=== PATIENT | female | born 1950 | race Caucasian/White ===

== ENCOUNTER → 2023-04-19 18:40 | Outpatient (REF) | payer MEDICARE, SELFPAY ==
[2023-04-19 19:32] LABS: Urine Albumin Negative (Neg - Trace); Urine Bilirubin Negative (Negative); Urine Character Clear (Clear); Urine Color Yellow; Urine Glucose Negative (Negative); Urine Ketone Negative (Negative); Urine Leukocyte Trace (Negative); Urine Nitrite Negative (Negative); Urine Occult Blood Negative (Negative); Urine Specific Gravity 1.015 (<1.030); Urine Urobilinogen Negative (Neg - 1+)
[2023-04-19 19:44] LABS: Urine Red Blood Cell None Seen /HPF (0-2); Urine White Cell 0-2 /HPF (0-5)
== END ==
LOC: CLAB 18:40
PROVIDERS: ATTENDING PHYSICIAN Obstetrics & Gynecology
DX: N39.0 Urinary tract infection, site not specified (principal)
CPT/HCPCS: 81003; 81015; 87086

== ENCOUNTER → 2023-06-29 06:30 | Day surgery (SDC) | payer MEDICARE, SELFPAY | LOC: GI 06:30 | PROVIDERS: ATTENDING PHYSICIAN Internal Medicine | DX: Z12.11 Encounter for screening for malignant neoplasm of colon (principal); D12.2 Benign neoplasm of ascending colon; K57.30 Diverticulosis of large intestine without perforation or abscess without bleeding; K64.9 Unspecified hemorrhoids; Z86.010 Personal history of colon polyps; Z80.0 Family history of malignant neoplasm of digestive organs | CPT/HCPCS: 45385; 45380; 88305 ==

== ENCOUNTER 2023-08-27 07:41 | Outpatient (RCR) | payer MEDICARE, SELFPAY | END 2023-08-27 23:59 | disposition home or self-care (01) | LOC: RPT 07:41 | PROVIDERS: ATTENDING PHYSICIAN Obstetrics & Gynecology; FAMILY PHYSICIAN Family Medicine | DX: N39.8 Other specified disorders of urinary system (principal); Z73.6 Limitation of activities due to disability | CPT/HCPCS: 97161; 97530 ==

== ENCOUNTER → 2023-09-06 07:02 | Outpatient (REF) | payer MEDICARE, SELFPAY | LOC: PAVMRI 07:02 | PROVIDERS: ATTENDING PHYSICIAN Family Medicine | DX: M25.561 Pain in right knee (principal) | CPT/HCPCS: 73721 ==

== ENCOUNTER 2023-09-28 14:08 | Outpatient (RCR) | payer MEDICARE, SELFPAY | END 2023-09-28 23:59 | disposition home or self-care (01) | LOC: RPT 14:08 | PROVIDERS: ATTENDING PHYSICIAN Obstetrics & Gynecology; FAMILY PHYSICIAN Family Medicine | DX: N39.8 Other specified disorders of urinary system (principal); Z73.6 Limitation of activities due to disability | CPT/HCPCS: 97110; 97112; 97140 ==

== ENCOUNTER → 2023-10-07 14:24 | Outpatient (REF) | payer MEDICARE, SELFPAY ==
[2023-10-07 16:12] LABS: Urine Albumin Negative (Neg - Trace); Urine Bilirubin Negative (Negative); Urine Color Yellow; Urine Glucose Negative (Negative); Urine Ketone Negative (Negative); Urine Leukocyte Trace (Negative); Urine Nitrite Negative (Negative); Urine Occult Blood Negative (Negative); Urine Urobilinogen Negative (Neg - 1+)
[2023-10-07 16:13] LABS: Urine Character Clear (Clear)
[2023-10-07 16:23] LABS: Urine Bacteria Few (Negative); Urine Squamous Cell >30 /LPF (Few)
[2023-10-07 16:25] LABS: % Basophils 0.2 % (0-2); % Immature Granulocytes 0.2 % (0-0.5); % Lymphocytes 27.5 % (20.5-51.1); % Monocytes 9.2 % (1.7-9.3); % Neutrophils 56.9 % (42.2-75.2); Absolute Eosinophils 0.3 10^3/uL (0-0.7); Absolute Lymphocytes 1.2 10^3/uL (1.2-3.4); Absolute Monocytes 0.4 10^3/uL (0.1-0.6); Absolute Neutrophils 2.5 10^3/uL (1.4-6.5); Hematocrit 39.6 % (37.0-47.0); Hemoglobin 13.2 g/dL (12.0-16.0); Mean Corp Hgb Conc. 33.3 g/dL (33.0-37.0); Mean Corpuscular Hgb 30.2 pg (27.0-31.0); Mean Corpuscular Volume 90.6 fL (81.0-99.0); Mean Platelet Volume 11.1 fL (7.4-10.4); Nucleated Red Blood Cells % 0 %; Platelet Count 238 10^3/uL (130-400); Red Blood Cell Count 4.37 10^6/uL (4.20-5.40); Red Cell Dist. Width 13.3 % (11.5-14.5); White Blood Cell Count 4.4 10^3/uL (4.8-10.8)
[2023-10-07 16:43] LABS: ALT (SGPT) 21 U/L (0-35); AST (SGOT) 26 U/L (14-36); Albumin 4.1 g/dl (3.5-5.0); Alkaline Phosphatase 55 U/L (38-126); Blood Urea Nitrogen 21 mg/dl (7-17); Calcium 9.8 mg/dl (8.4-10.2); Carbon Dioxide 28 mmol/L (22-30); Chloride 104 mmol/L (98-107); Glucose 100 mg/dl (70-99); Potassium 3.9 mmol/L (3.5-5.1); Sodium 139 mmol/L (135-145); Total Bilirubin 0.6 mg/dl (0.2-1.3); Total Protein 6.8 g/dl (6.3-8.2); eGFR > 60.00
[2023-10-07 16:58] LABS: Vitamin D, 25-OH*** 24.6 ng/mL (30-80)
[2023-10-07 17:12] LABS: TSH 1.51 uIU/ml (0.47-4.68)
== END ==
LOC: REG 14:24
PROVIDERS: ATTENDING PHYSICIAN Family Medicine
DX: E55.9 Vitamin D deficiency, unspecified (principal); E24.9 Cushing's syndrome, unspecified; Z00.00 Encounter for general adult medical examination without abnormal findings; Z13.220 Encounter for screening for lipoid disorders; Z13.29 Encounter for screening for other suspected endocrine disorder; Z13.0 Encounter for screening for diseases of the blood and blood-forming organs and certain disorders involving the immune mechanism; Z13.89 Encounter for screening for other disorder; E66.09 Other obesity due to excess calories; D64.9 Anemia, unspecified
CPT/HCPCS: 36415; 80053; 81003; 81015; 82306; 84443; 85025

== ENCOUNTER → 2023-10-12 06:24 | Outpatient (REF) | payer MEDICARE, SELFPAY ==
[2023-10-12 08:04] LABS: HDL Cholesterol 63 mg/dl; LDL Cholesterol, Calculated 66 mg/dl; Total Cholesterol 136 mg/dl (50-199); Triglyceride 36 mg/dl (10-149); Very Low Density Lipoprotein 7 mg/dl (0-30)
== END ==
LOC: REG 06:24
PROVIDERS: ATTENDING PHYSICIAN Family Medicine; REFERRING PHYSICIAN Internal Medicine Endocrinology, Diabetes & Metabolism
DX: E55.9 Vitamin D deficiency, unspecified (principal); E24.9 Cushing's syndrome, unspecified; Z00.00 Encounter for general adult medical examination without abnormal findings; Z13.220 Encounter for screening for lipoid disorders; Z13.29 Encounter for screening for other suspected endocrine disorder; Z13.0 Encounter for screening for diseases of the blood and blood-forming organs and certain disorders involving the immune mechanism; Z13.89 Encounter for screening for other disorder; E66.09 Other obesity due to excess calories
CPT/HCPCS: 36415; 80061

== ENCOUNTER 2023-10-28 14:02 | Outpatient (RCR) | payer MEDICARE, SELFPAY | END 2023-10-28 15:54 | disposition home or self-care (01) | LOC: RPT 14:02 | PROVIDERS: ATTENDING PHYSICIAN Obstetrics & Gynecology; FAMILY PHYSICIAN Family Medicine | DX: N39.8 Other specified disorders of urinary system (principal); Z73.6 Limitation of activities due to disability | CPT/HCPCS: 97110; 97140 ==

== ENCOUNTER → 2023-12-27 13:02 | Outpatient (REF) | payer MEDICARE, SELFPAY | LOC: HWWDC 13:02 | PROVIDERS: ATTENDING PHYSICIAN Family Medicine; REFERRING PHYSICIAN Obstetrics & Gynecology Gynecology | DX: M85.80 Other specified disorders of bone density and structure, unspecified site (principal); Z12.31 Encounter for screening mammogram for malignant neoplasm of breast; M85.89 Other specified disorders of bone density and structure, multiple sites | CPT/HCPCS: 77063; 77067; 77080 ==

== ENCOUNTER → 2024-07-21 06:50 | Outpatient (REF) | payer MEDICARE, SELFPAY ==
[2024-07-21 07:55] LABS: % Basophils 0.3 % (0-2); % Eosinophils 7.5 % (0-6); % Immature Granulocytes 0.3 % (0-0.5); % Lymphocytes 33.6 % (20.5-51.1); % Monocytes 9.8 % (1.7-9.3); % Neutrophils 48.5 % (42.2-75.2); Absolute Eosinophils 0.3 10^3/uL (0-0.7); Absolute Lymphocytes 1.3 10^3/uL (1.2-3.4); Absolute Monocytes 0.4 10^3/uL (0.1-0.6); Absolute Neutrophils 1.9 10^3/uL (1.4-6.5); Hematocrit 39.5 % (37.0-47.0); Hemoglobin 12.9 g/dL (12.0-16.0); Mean Corp Hgb Conc. 32.7 g/dL (33.0-37.0); Mean Corpuscular Hgb 29.5 pg (27.0-31.0); Mean Corpuscular Volume 90.4 fL (81.0-99.0); Nucleated Red Blood Cells % 0 %; Platelet Count 233 10^3/uL (130-400); Red Blood Cell Count 4.37 10^6/uL (4.20-5.40); Red Cell Dist. Width 12.9 % (11.5-14.5); White Blood Cell Count 3.9 10^3/uL (4.8-10.8)
[2024-07-21 08:38] LABS: ALT (SGPT) 18 U/L (0-35); AST (SGOT) 21 U/L (14-36); Albumin 3.8 g/dl (3.5-5.0); Alkaline Phosphatase 43 U/L (38-126); Blood Urea Nitrogen 18 mg/dl (7-17); Calcium 9.3 mg/dl (8.4-10.2); Carbon Dioxide 29 mmol/L (22-30); Chloride 108 mmol/L (98-107); Glucose 94 mg/dl (70-99); Iron 109 ug/dl (37-170); Potassium 4.4 mmol/L (3.5-5.1); Sodium 142 mmol/L (135-145); Total Bilirubin 0.7 mg/dl (0.2-1.3); Total Protein 6.6 g/dl (6.3-8.2); eGFR > 60.00
[2024-07-21 08:50] LABS: Vitamin D, 25-OH*** 36.5 ng/mL (30-80)
[2024-07-21 09:02] LABS: Erythrocyte Sed Rate 20 mm/hour (0-20)
[2024-07-21 09:04] LABS: TSH 1.76 uIU/ml (0.47-4.68)
[2024-07-23 08:53] LABS: ANA, IgG Reflex to HEp-2 None Detected (None Detected)
== END ==
LOC: REG 06:50
PROVIDERS: ATTENDING PHYSICIAN Family Medicine
DX: E27.40 Unspecified adrenocortical insufficiency (principal); E24.9 Cushing's syndrome, unspecified; E55.9 Vitamin D deficiency, unspecified; R53.83 Other fatigue; R63.4 Abnormal weight loss; D64.9 Anemia, unspecified
CPT/HCPCS: 36415; 80053; 82306; 82728; 83540; 84443; 85025; 85652; 86038; 86618

== ENCOUNTER 2024-11-04 07:30 | Emergency (ER) | payer MEDICARE, SELFPAY ==
[2024-11-04 07:32] VITALS: BP 184/88
--- NOTE | 2024-11-04 08:25 | ED.GENMED ---
History of Present Illness
General
Chief Complaint: Musculo-Skeletal Complaint
Time Seen by Provider: 11/04/24 07:53
History of Present Illness
History of Present Illness:
73-year-old female presents to the emergency department for evaluation of right wrist pain after falling last night, she states that she tripped in a dark room. Has significant pain to the right wrist with no numbness or tingling of the fingers.
Denies any other injuries or pain
Review of Systems
Review of Systems
Allergies reviewed?: Yes
All Other Systems: ROS reviewed and negative except as documented in HPI and ROS
Phy Exam
Physical Exam
Physical Exam:
GEN: Well appearing, NAD, WDWN
HEENT: Oral mucosa moist, no scleral icterus
Cardiac: Regular rate
Lung: No respiratory distress, no tachypnea
MSK: Deformity of the right wrist with no significant angulation, right radial pulse is strong, sensation to the digits intact
Skin: Good color, no pallor or jaundice, no rashes
Neuro: AO x3, moves all extremities freely
Psych: Calm, cooperative
Course
Orders/Labs/Results
Orders:
Orders
11/04/24 07:33
Wrist, Right 3 Views [CR Wrist - Right Min 3 Views] Urgent
Comment:
Reason For Exam: pain,trauma
Vital Signs
Initial and Last Documented VS:
Initial Vital Signs
Temp Pulse Resp BP Pulse Ox
98.0 F 55 18 184/88 96
11/04/24 07:32 11/04/24 07:32 11/04/24 07:32 11/04/24 07:32 11/04/24 07:32
Last Documented Vital Signs
Temp Pulse Resp BP Pulse Ox
98.0 F 55 18 184/88 96
11/04/24 07:32 11/04/24 07:32 11/04/24 07:32 11/04/24 07:32 11/04/24 08:27
Procedures
Splinting/Sling Placement
Right Wrist:
Procedure completed by: Orlando Stern PA-C
Pre-splint extermity exam: neurovascular intact
Type of splint: sugar-tong
Splint material: fiberglass
Splint checked by provider?: Yes
Type of sling: sling fitted
Normal distal neurovascular exam?: Yes
MDM/Problems Addressed
MDM/Problems Addressed:
Distal radius and ulna fractures identified on x-ray independently interpreted by me. Splint applied by myself with gentle linear traction and dorsal realignment applied. Will refer to hand surgery as an outpatient for follow-up
*Pulse Oximetry
SaO2: 96
Oxygen Mode of Delivery: Room air
Patient hypoxic: no
*Critical Care Note
Total Time (30-74mins, 75-104mins- exclusive of procedures): Not Applicable
ED Attending Note
-
Portions of this chart may have been created with voice recognition software.� Occasional wrong word or��sound alike� substitutions may have occurred due to the inherent limitations of voice recognition software.
Discharge Plan
Departure
Patient Disposition: Home (Routine Discharge)
Date of Disposition: 11/04/24
Time of Disposition: 08:25
Patient with high blood pressure during this ER visit?: No
Discharge Problem:
Closed fracture of distal end of right radius with ulna
Instructions: Wrist Fracture (DC)
Referrals:
Cricket Michael MD [Active, Orthopedics]
Interventions
Interventions:
*Risk Screen - Suicide Last Done: 11/04/24 07:32
*General Assessment Last Done: 11/04/24 07:32
*Neglect/Abuse Screening Last Done: 11/04/24 07:33
*ED- Fall Risk Assessment Last Done: 11/04/24 08:30
*ED COVID-19 Vaccine History Last Done: 11/04/24 08:30
*Nursing Disposition Last Done: 11/04/24 08:40
ED-Musculoskeletal Assessment Last Done: 11/04/24 08:30
Discharge Date and Time
Discharge Date/Time: 11/04/24 08:40
Print Language: ISRAELI
== END 2024-11-04 08:40 | disposition home or self-care (01) ==
LOC: EMR 07:30
PROVIDERS: EMERGENCY PHYSICIAN Emergency Medicine; FAMILY PHYSICIAN Family Medicine
DX: S52.571A Other intraarticular fracture of lower end of right radius, initial encounter for closed fracture (principal); S52.611A Displaced fracture of right ulna styloid process, initial encounter for closed fracture; W01.0XXA Fall on same level from slipping, tripping and stumbling without subsequent striking against object, initial encounter
CPT/HCPCS: 99283; 73110

== ENCOUNTER → 2024-11-06 14:08 | Outpatient (REF) | payer MEDICARE, SELFPAY ==
[2024-11-06 14:44] LABS: Hematocrit 39.5 % (37.0-47.0); Hemoglobin 12.6 g/dL (12.0-16.0); Mean Corp Hgb Conc. 31.9 g/dL (33.0-37.0); Mean Corpuscular Volume 90.8 fL (81.0-99.0); Nucleated Red Blood Cells % 0 %; Platelet Count 226 10^3/uL (130-400); Red Cell Dist. Width 13.2 % (11.5-14.5)
[2024-11-06 15:04] LABS: Blood Urea Nitrogen 18 mg/dl (7-17); Calcium 9.3 mg/dl (8.4-10.2); Carbon Dioxide 30 mmol/L (22-30); Chloride 107 mmol/L (98-107); Glucose 101 mg/dl (70-99); Potassium 4.3 mmol/L (3.5-5.1); Sodium 140 mmol/L (135-145); eGFR > 60.00
== END ==
LOC: REG 14:08
PROVIDERS: ATTENDING PHYSICIAN Orthopaedic Surgery Hand Surgery; FAMILY PHYSICIAN Family Medicine
DX: Z01.818 Encounter for other preprocedural examination (principal)
CPT/HCPCS: 36415; 80048; 85025; 93005